=== PATIENT | female | born 1950 | race Caucasian/White ===

== ENCOUNTER 2016-12-03 17:58 | Emergency (ER) | payer MEDICARE, OTHER ==
[~2016-12-03] VITALS: Ht 162.6 cm; Wt 95.2 kg
[2016-12-03] MEDS ORDERED: OLOP5DRO7 OP (18:34)
[2016-12-03] MEDS ORDERED: FLUO20CA8 PO (18:34)
[2016-12-03] MEDS ORDERED: LEVO75TA PO (18:34)
[2016-12-03] MEDS ORDERED: CEFU250T66 PO (18:34)
[2016-12-03] MEDS ORDERED: ATEN50TA41 PO (18:34)
[2016-12-03 18:40] LABS: HEMOGLOBIN 14.1 g/dL (11.7-16.4)
[2016-12-03 18:48] LABS: BLOOD UREA NITROGEN 15 mg/dL (7-18)
[2016-12-03 18:54] LABS: RAPID INFLUENZA A Negative (Negative); RAPID INFLUENZA B Negative (Negative)
[2016-12-03 19:06] LABS: PATH.CAST-FLAG NOT PRESENT; SPERM-FLAG NOT PRESENT; SRC-FLAG NOT PRESENT; XTAL-FLAG NOT PRESENT; YLC-FLAG NOT PRESENT
[2016-12-03] MEDS ORDERED: OMNIPAQUE 350 MG/ML, 100ML BOTTLE ONE (19:52)
[2016-12-03 22:14] VITALS: BP 137/75
== END 2016-12-03 22:16 | disposition home or self-care (01) ==
LOC: ED 19:40
DX: R10.31 Right lower quadrant pain (principal); I10 Essential (primary) hypertension
CPT/HCPCS: 36415; 74177; 80048; 81001; 82040; 85025; 87400; 99285; Q9967

== ENCOUNTER 2018-11-09 10:00 | Inpatient (IN) | payer MEDICARE, OTHER ==
[~2018-11-09] VITALS: Ht 162.6 cm; Wt 94.1 kg
[~2018-11-09 10:00] MED LIST: ATEN50TA41 PO; CEFU250T66 PO; FLUO20CA8 PO; LEVO75TA PO; OLOP5DRO13 OP
[2018-11-09] MEDS ORDERED: METOPROLOL 1 MG/ML, 5ML IVPush STA (10:24)
[2018-11-09] MEDS ORDERED: BIVALIRUDIN 250 MG ONE ×2 (10:29→11:28)
[2018-11-09] MEDS ORDERED: MORPHINE SULFATE 4 MG/ML, 1ML ONE (10:29)
[2018-11-09] MEDS ORDERED: METOPROLOL 1 MG/ML, 5ML ONE (10:29)
[2018-11-09] MEDS ORDERED: FENTANYL PF 100 MCG/2ML ONE (10:29)
[2018-11-09] MEDS ORDERED: LIDOCAINE 2%, 20ML ONE (10:29)
[2018-11-09] MEDS ORDERED: NITROGLYCERIN 5 MG/ML, 10ML ONE (10:29)
[2018-11-09] MEDS ORDERED: TICAGRELOR 90 MG TABLET ONE (10:29)
[2018-11-09] MEDS ORDERED: MIDAZOLAM 1 MG/ML, 5ML ONE (10:29)
[2018-11-09] MEDS ORDERED: HEPARIN 1,000 UNITS/ML, 10ML ONE (10:29)
[2018-11-09] MEDS ORDERED: VERAPAMIL 2.5 MG/ML, 2ML ONE (10:29)
[2018-11-09] MEDS ORDERED: SODIUM CHLORIDE FLUSH 10ML SYR IVF ONE (10:30)
[2018-11-09] MEDS ORDERED: ONDANSETRON 2MG/ML, 2ML IVPush ONE (10:30)
[2018-11-09] MEDS ORDERED: ASPIRIN 81 MG TABLET CHEW PO ONE (10:30)
[2018-11-09] MEDS: MORPHINE SULFATE 4 MG/ML, 1ML IVPush PRN ×3 (10:30→16:43)
--- NOTE | 2018-11-09 10:34 | NUR ---
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
[2018-11-09] MEDS ORDERED: DIPHENHYDRAMINE 50 MG/ML, 1ML ONE (10:36)
[2018-11-09] MEDS ORDERED: methylPREDNISolone SOD SUCC 125 MG/2 ML ONE (10:36)
[2018-11-09] MEDS ORDERED: ASPIRIN 81 MG TABLET CHEW ONE ×2 (10:38→11:00)
[2018-11-09 10:41] LABS: BASOPHILS # (AUTO) 0.05 x10^3/uL (0-0.1); BASOPHILS % (AUTO) 1 % (0-1); EOSINOPHILS # (AUTO) 0.29 x10^3/uL (0-0.4); EOSINOPHILS % (AUTO) 4 % (1-7); LYMPHOCYTES # (AUTO) 3.45 x10^3/uL (1-3.4); LYMPHOCYTES % (AUTO) 44 % (22-44); MD NO; MEAN CORPUSCULAR HEMOGLOBIN 29.8 pg (27.0-34.8); MEAN CORPUSCULAR HGB CONC 33.8 g/dL (32.4-35.8); MEAN CORPUSCULAR VOLUME 88.2 fL (80-100); MEAN PLATELET VOLUME 7.9 fL (7.4-10.4); MONOCYTES # (AUTO) 0.56 x10^3/uL (0.2-0.8); MONOCYTES % (AUTO) 7 % (2-9); NEUTROPHILS # (AUTO) 3.49 x10^3/uL (1.8-6.8); NEUTROPHILS % (AUTO) 45 % (42-75); PLATELET COUNT 311 x10^3/uL (130-400); RED BLOOD COUNT 4.84 x10^6/uL (3.82-5.3)
[2018-11-09 10:52] LABS: ALBUMIN 4.1 g/dL (3.4-5.0); ANION GAP 6 mmol/L (5-15); CALCIUM 8.6 mg/dL (8.5-10.1); CHLORIDE 106 mmol/L (98-107)
[2018-11-09 10:58] LABS: ALANINE AMINOTRANSFERASE 25 U/L (12-78); ALKALINE PHOSPHATASE 80 U/L (45-117); BILIRUBIN,TOTAL 0.8 mg/dL (0.2-1.0); CREATININE 0.96 mg/dL (0.55-1.02); TOTAL PROTEIN 7.6 g/dL (6.4-8.2); TROPONIN I 0.035 ng/mL (0.000-0.045)
[2018-11-09] MEDS ORDERED: METOPROLOL 1 MG/ML, 5ML IVPush ONE (11:00)
[2018-11-09] MEDS ORDERED: PRASUGREL 10 MG TABLET ONE (11:28)
[2018-11-09] MEDS: SODIUM CHLORIDE 0.9% 1,000 ML IV SCH ×2 (11:37→19:37)
[2018-11-09] MEDS ORDERED: BIVALIRUDIN 250 MG in SODIUM CHLORIDE 0.9% 50 ML IV SCH (11:37)
[2018-11-09] MEDS ORDERED: NITROGLYCERIN 0.4 MG/SPRAY SL PRN (12:00)
[2018-11-09] MEDS ORDERED: NITROGLYCERIN 0.4 MG BOTTLE (25 TABS) SL PRN (12:00)
[2018-11-09] MEDS ORDERED: morphine SULFATE 10 MG/ML, 1ML IVPush PRN (12:00)
[2018-11-09] MEDS ORDERED: ZOLPIDEM 5MG TABLET PO PRN (12:00)
[2018-11-09] MEDS ORDERED: ONDANSETRON 2MG/ML, 2ML IVPush PRN (12:00)
[2018-11-09] MEDS: METOPROLOL TARTRATE 25 MG TABLET PO SCH (18:01)
[2018-11-09 20:39] LABS: MEAN CORPUSCULAR HEMOGLOBIN 29.6 pg (27.0-34.8); MEAN CORPUSCULAR HGB CONC 33.9 g/dL (32.4-35.8); MEAN CORPUSCULAR VOLUME 87.4 fL (80-100); MEAN PLATELET VOLUME 8.1 fL (7.4-10.4); PLATELET COUNT 286 x10^3/uL (130-400); RED BLOOD COUNT 4.88 x10^6/uL (3.82-5.3); RED CELL DISTRIBUTION WIDTH 13.7 % (9.6-15.2)
[2018-11-09 20:50] LABS: ALANINE AMINOTRANSFERASE 51 U/L (12-78); ALBUMIN 3.6 g/dL (3.4-5.0); ANION GAP 10 mmol/L (5-15); CALCIUM 8.4 mg/dL (8.5-10.1); CHLORIDE 108 mmol/L (98-107); CREATININE 1.07 mg/dL (0.55-1.02)
[2018-11-09 20:52] LABS: ALKALINE PHOSPHATASE 70 U/L (45-117); BILIRUBIN,TOTAL 0.5 mg/dL (0.2-1.0)
[2018-11-09] MEDS ORDERED: ATORVASTATIN 80 MG TABLET PO SCH (21:00)
[2018-11-09 21:04] LABS: BASOPHILS # (AUTO) 0.05 x10^3/uL (0-0.1); BASOPHILS % (AUTO) 1 % (0-1); EOSINOPHILS % (AUTO) 0 % (1-7); LYMPHOCYTES # (AUTO) 0.89 x10^3/uL (1-3.4); LYMPHOCYTES % (AUTO) 11 % (22-44); MD SCAN; MONOCYTES # (AUTO) 0.14 x10^3/uL (0.2-0.8); MONOCYTES % (AUTO) 2 % (2-9); NEUTROPHILS # (AUTO) 7.43 x10^3/uL (1.8-6.8); NEUTROPHILS % (AUTO) 87 % (42-75)
[2018-11-10] MEDS: SODIUM CHLORIDE 0.9% 1,000 ML IV SCH (03:37)
[2018-11-10 04:34] LABS: CALCIUM 9.1 mg/dL (8.5-10.1); CHLORIDE 107 mmol/L (98-107)
[2018-11-10 05:05] LABS: ANION GAP 10 mmol/L (5-15); CREATININE 0.84 mg/dL (0.55-1.02)
[2018-11-10] MEDS: METOPROLOL TARTRATE 25 MG TABLET PO SCH ×2 (06:34→18:31)
[2018-11-10] MEDS: LEVOTHYROXINE 75 MCG TABLET PO SCH (06:34)
[2018-11-10] MEDS: ASPIRIN 81 MG TABLET EC PO SCH (08:26)
[2018-11-10] MEDS: PRASUGREL 10 MG TABLET PO SCH (08:26)
[2018-11-10] MEDS: FLUOXETINE HCL 20 MG CAPSULE PO SCH (08:26)
[2018-11-10] MEDS: EZETIMIBE 10 MG TABLET PO SCH (08:27)
[2018-11-10] MEDS ORDERED: MAGNESIUM SULFATE PMX 2GM/50ML 50 ML IV ONE (12:00)
[2018-11-10 19:31] VITALS: BP 108/67
[2018-11-11 02:52] VITALS: BP 106/69
[2018-11-11] MEDS: LEVOTHYROXINE 75 MCG TABLET PO SCH (06:01)
[2018-11-11] MEDS: METOPROLOL TARTRATE 25 MG TABLET PO SCH (06:04)
[2018-11-11 06:20] LABS: BASOPHILS # (AUTO) 0.05 x10^3/uL (0-0.1); BASOPHILS % (AUTO) 1 % (0-1); EOSINOPHILS % (AUTO) 2 % (1-7); LYMPHOCYTES # (AUTO) 2.36 x10^3/uL (1-3.4); LYMPHOCYTES % (AUTO) 29 % (22-44); MD NO; MEAN CORPUSCULAR HEMOGLOBIN 30.1 pg (27.0-34.8); MEAN CORPUSCULAR HGB CONC 34.5 g/dL (32.4-35.8); MEAN CORPUSCULAR VOLUME 87.2 fL (80-100); MEAN PLATELET VOLUME 8.2 fL (7.4-10.4); MONOCYTES # (AUTO) 0.74 x10^3/uL (0.2-0.8); MONOCYTES % (AUTO) 9 % (2-9); NEUTROPHILS # (AUTO) 4.87 x10^3/uL (1.8-6.8); NEUTROPHILS % (AUTO) 59 % (42-75); PLATELET COUNT 230 x10^3/uL (130-400); RED BLOOD COUNT 4.12 x10^6/uL (3.82-5.3); RED CELL DISTRIBUTION WIDTH 14.3 % (9.6-15.2)
[2018-11-11 06:24] LABS: ANION GAP 7 mmol/L (5-15); CALCIUM 8.3 mg/dL (8.5-10.1); CHLORIDE 109 mmol/L (98-107)
[2018-11-11 06:37] LABS: CHOL/HDL RATIO 4.3; CHOLESTEROL, TOTAL 189 mg/dL (140-239); CREATININE 0.71 mg/dL (0.55-1.02); HDL CHOL % 23 % (28-40); HDL CHOLESTEROL (DIRECT) 44 mg/dL (40-60); LDL CHOLESTEROL,CALCULATED 109 mg/dL (54-169); LDL/HDL RATIO 2.5 (0.5-3.0); TRIGLYCERIDES 181 mg/dL (50-200); VLDL CHOLESTEROL 36 mg/dL (0-25)
[2018-11-11 07:36] VITALS: BP 112/75
[2018-11-11] MEDS: PRASUGREL 10 MG TABLET PO SCH (09:07)
[2018-11-11] MEDS: EZETIMIBE 10 MG TABLET PO SCH (09:07)
[2018-11-11] MEDS: ASPIRIN 81 MG TABLET EC PO SCH (09:07)
[2018-11-11] MEDS: FLUOXETINE HCL 20 MG CAPSULE PO SCH (09:07)
[2018-11-11] MEDS ORDERED: PRAS10TA4 PO (09:58)
[2018-11-11] MEDS ORDERED: METO25TA35 PO (09:58)
[2018-11-11] MEDS ORDERED: NITR0.4T SL (09:58)
[2018-11-11] MEDS ORDERED: ASPI81TA45 PO (09:58)
== END 2018-11-11 11:29 | disposition home or self-care (01) | DRG 246 ==
LOC: ED 10:30 → EDIP 10:31 → ED 10:46 → CCU 11:52 → CSU 19:30 → 5SO 11-10 19:22 → DCLOUNGE 11-11 11:07
PROVIDERS: ADMIT Hospitalist; ATTEND Internal Medicine
PROC: 027034Z Dilation of Coronary Artery, One Artery with Drug-eluting Intraluminal Device, Percutaneous Approach (ICD-10-PCS; principal; 2018-11-09)
PROC: 4A023N7 Measurement of Cardiac Sampling and Pressure, Left Heart, Percutaneous Approach (ICD-10-PCS; 2018-11-09)
PROC: 4A033BC Measurement of Arterial Pressure, Coronary, Percutaneous Approach (ICD-10-PCS; 2018-11-09)
PROC: B2111ZZ Fluoroscopy of Multiple Coronary Arteries using Low Osmolar Contrast (ICD-10-PCS; 2018-11-09)
PROC: B2151ZZ Fluoroscopy of Left Heart using Low Osmolar Contrast (ICD-10-PCS; 2018-11-09)
DX: I21.29 ST elevation (STEMI) myocardial infarction involving other sites (principal); I50.33 Acute on chronic diastolic (congestive) heart failure; I25.10 Atherosclerotic heart disease of native coronary artery without angina pectoris; E03.9 Hypothyroidism, unspecified; E78.5 Hyperlipidemia, unspecified; F32.9 Major depressive disorder, single episode, unspecified; I10 Essential (primary) hypertension; J45.20 Mild intermittent asthma, uncomplicated; Z88.0 Allergy status to penicillin; Z98.51 Tubal ligation status; Z91.013 Allergy to seafood; Z91.010 Allergy to peanuts; Z87.891 Personal history of nicotine dependence; Z82.49 Family history of ischemic heart disease and other diseases of the circulatory system; Z82.5 Family history of asthma and other chronic lower respiratory diseases; I11.0 Hypertensive heart disease with heart failure
CPT/HCPCS: 36415; 71045; 80048; 80053; 80061; 83735; 83880; 84100; 84443; 84484; 85014; 85018; 85025; 87081; 93005; 93306; 93458; 93571; 96374; 99156; 99157; 99285; C1760; C1769; C1894; G0378; J0583; J1644; J2250; J3010; C1725; C1874; C1887; J1200; J2930; J3475; Q9967

== ENCOUNTER → 2019-02-09 | Outpatient (CLI) | payer MEDICARE, OTHER ==
[~2019-02-09] MED LIST changes: +ASPI81TA45 PO; +METO25TA35 PO; +NITR0.4T41 SL; +PRAS10TA4 PO
== END | disposition home or self-care (01) ==
LOC: CFH 08:01
PROVIDERS: ATTEND Registered Nurse
DX: I08.3 Combined rheumatic disorders of mitral, aortic and tricuspid valves (principal); I25.118 Atherosclerotic heart disease of native coronary artery with other forms of angina pectoris
CPT/HCPCS: 93306

== ENCOUNTER 2019-02-23 06:02 | Day surgery (SDC) | payer MEDICARE, OTHER ==
[~2019-02-23] VITALS: Ht 162.6 cm; Wt 88.5 kg
[2019-02-23 06:27] VITALS: BP 142/86
[2019-02-23] MEDS ORDERED: SODIUM CHLORIDE 0.9% 1,000 ML IV SCH ×2 (06:30)
[2019-02-23] MEDS ORDERED: EZET10TA18 PO (06:39)
[2019-02-23] MEDS ORDERED: PROPOFOL 10 MG/ML, 20ML ONE (15:41)
== END 2019-02-23 09:34 | disposition home or self-care (01) ==
LOC: CACL 06:02
PROVIDERS: ATTEND Internal Medicine Cardiovascular Disease
DX: I34.0 Nonrheumatic mitral (valve) insufficiency (principal); J44.9 Chronic obstructive pulmonary disease, unspecified; F17.210 Nicotine dependence, cigarettes, uncomplicated; I10 Essential (primary) hypertension; E78.2 Mixed hyperlipidemia; I25.2 Old myocardial infarction; E03.9 Hypothyroidism, unspecified; Z79.82 Long term (current) use of aspirin; Z91.018 Allergy to other foods; Z88.0 Allergy status to penicillin; Z91.013 Allergy to seafood; Z98.61 Coronary angioplasty status
CPT/HCPCS: 93312; 93321; 93325; J2704

== ENCOUNTER 2019-11-01 10:16 | Observation (INO) | payer MEDICARE, OTHER ==
[~2019-11-01] VITALS: Ht 162.6 cm; Wt 98.8 kg
[~2019-11-01 10:16] MED LIST changes: +EZET10TA70 PO; +FLUO20CA23 PO; -FLUO20CA8 PO
[2019-11-01] MEDS ORDERED: ALIR75PE INJ (10:33)
[2019-11-01] MEDS ORDERED: ALBU18HF PO (10:33)
[2019-11-01] MEDS ORDERED: LOSA100T14 PO (10:33)
--- NOTE | 2019-11-01 11:08 | NUR ---
pt continues to rest in bed with hospital gown on. pt on cardiac and vitals monitors. pt at bedside. call light within reach. will continue to monitor.
[2019-11-01] MEDS ORDERED: ASPIRIN 81 MG TABLET CHEW PO ONE (11:30)
[2019-11-01 11:33] LABS: BASOPHILS # (AUTO) 0.03 x10^3/uL (0-0.1); BASOPHILS % (AUTO) 1 % (0-1); EOSINOPHILS # (AUTO) 0.28 x10^3/uL (0-0.4); EOSINOPHILS % (AUTO) 5 % (1-7); LYMPHOCYTES # (AUTO) 1.84 x10^3/uL (1-3.4); LYMPHOCYTES % (AUTO) 32 % (22-44); MD NO; MEAN CORPUSCULAR HEMOGLOBIN 30.4 pg (27.0-34.8); MEAN CORPUSCULAR HGB CONC 33.8 g/dL (32.4-35.8); MEAN CORPUSCULAR VOLUME 90.1 fL (80-100); MEAN PLATELET VOLUME 8.2 fL (7.4-10.4); MONOCYTES # (AUTO) 0.49 x10^3/uL (0.2-0.8); MONOCYTES % (AUTO) 9 % (2-9); NEUTROPHILS # (AUTO) 3.05 x10^3/uL (1.8-6.8); NEUTROPHILS % (AUTO) 54 % (42-75); PLATELET COUNT 269 x10^3/uL (130-400); RED BLOOD COUNT 4.36 x10^6/uL (3.82-5.3); RED CELL DISTRIBUTION WIDTH 13.5 % (9.6-15.2)
[2019-11-01 11:50] LABS: ALBUMIN 3.4 g/dL (3.4-5.0); ANION GAP 6 mmol/L (5-15); CALCIUM 9.2 mg/dL (8.5-10.1); CHLORIDE 107 mmol/L (98-107); CREATININE 1.01 mg/dL (0.55-1.02)
[2019-11-01 11:53] LABS: TROPONIN I < 0.015 ng/mL (0.000-0.045)
--- NOTE | 2019-11-01 12:19 | NUR ---
PT RESTING CALMLY IN BED ON PHONE. NO STATED NEEDS CURRENTLY. WILL CONTINUE TO MONITOR. PT IS UP FOR POSS ADMISSION.
--- NOTE | 2019-11-01 13:33 | NUR ---
PT ABLE TO AMBULATE STEADILY ON OWN TO BATHROOM. PT REMAINS POSS ADMIT. NO STATED NEEDS FROM PT AT THIS TIME.
[2019-11-01] MEDS ORDERED: SODIUM CHLORIDE 0.9% 1,000 ML IV SCH (14:35)
[2019-11-01] MEDS ORDERED: morphine SULFATE 10 MG/ML, 1ML IVPush PRN (15:00)
[2019-11-01] MEDS ORDERED: PROMETHAZINE 25 MG/ML, 1ML IM PRN (15:00)
[2019-11-01] MEDS ORDERED: ONDANSETRON 2MG/ML, 2ML IVPush PRN (15:00)
[2019-11-01] MEDS ORDERED: NITROGLYCERIN SINGLE TAB 0.4 MG SL PRN (15:00)
[2019-11-01] MEDS ORDERED: LABETALOL 5MG/ML, 20ML IVPush PRN (15:00)
[2019-11-01] MEDS: HEPARIN 5,000 UNITS/ML, 1ML SQ SCH ×2 (15:00→23:00)
[2019-11-01] MEDS ORDERED: hydrALAzine 20 MG/ML, 1ML IVPush PRN (15:00)
--- NOTE | 2019-11-01 15:00 | NUR ---
BREAK RN NOTE: PT NOTES 3/10 PAIN TO LEFT JAW AND SHOULDER, STATES IT HAS IMPROVED SINCE ARRIVAL. REPORT RECEIVED FROM PRIMARY RN CARL. CARD TELE ROOM ASSIGNED, REPORT GIVEN TO RECEIVING IFTIKHAR PROCTOR. PT A&O, RESPS EVEN AND UNLABORED, NSR ON COMPLIANCE ADMINISTRATOR WITH NO ECTOPY NOTED. AWAITING TRANSPORT TO [facility] AT THIS TIME.
--- NOTE | 2019-11-01 15:03 | NUR ---
PT NOTES SHE TOOK 324 MG ASPIRIN THIS AM PRIOR TO ARRIVAL IN ED.
[2019-11-01 15:21] LABS: CHOLESTEROL, TOTAL 138 mg/dL (140-239)
[2019-11-01 15:26] LABS: CHOL/HDL RATIO 2.2; HDL CHOL % 45 % (28-40); HDL CHOLESTEROL (DIRECT) 62 mg/dL (40-60); LDL CHOLESTEROL,CALCULATED 56 mg/dL (54-169); LDL/HDL RATIO 0.9 (0.5-3.0); TRIGLYCERIDES 99 mg/dL (50-200); TROPONIN I < 0.015 ng/mL (0.000-0.045); VLDL CHOLESTEROL 20 mg/dL (0-25)
[2019-11-01 16:38] VITALS: BP 138/81
[2019-11-01] MEDS: METOPROLOL TARTRATE 25 MG TAB PO SCH (18:11)
[2019-11-01 20:24] VITALS: BP 135/78
[2019-11-01 20:59] LABS: TROPONIN I < 0.015 ng/mL (0.000-0.045)
[2019-11-01] MEDS ORDERED: EZETIMIBE 10 MG TABLET PO SCH (21:00)
[2019-11-01] MEDS: ACETAMINOPHEN 325 MG TABLET PO PRN (21:10)
[2019-11-01] MEDS ORDERED: OMNIPAQUE 350 MG/ML, 100ML BOTTLE ONE (23:01)
[2019-11-02 00:49] VITALS: BP 137/83
[2019-11-02] MEDS: ACETAMINOPHEN 325 MG TABLET PO PRN (02:07)
[2019-11-02 05:20] LABS: BASOPHILS # (AUTO) 0.03 x10^3/uL (0-0.1); BASOPHILS % (AUTO) 1 % (0-1); EOSINOPHILS # (AUTO) 0.33 x10^3/uL (0-0.4); EOSINOPHILS % (AUTO) 7 % (1-7); LYMPHOCYTES # (AUTO) 1.88 x10^3/uL (1-3.4); LYMPHOCYTES % (AUTO) 37 % (22-44); MD NO; MEAN CORPUSCULAR HEMOGLOBIN 30.2 pg (27.0-34.8); MEAN CORPUSCULAR HGB CONC 33.2 g/dL (32.4-35.8); MEAN CORPUSCULAR VOLUME 90.8 fL (80-100); MEAN PLATELET VOLUME 7.9 fL (7.4-10.4); MONOCYTES % (AUTO) 10 % (2-9); NEUTROPHILS # (AUTO) 2.35 x10^3/uL (1.8-6.8); NEUTROPHILS % (AUTO) 46 % (42-75); PLATELET COUNT 245 x10^3/uL (130-400); RED BLOOD COUNT 4.27 x10^6/uL (3.82-5.3); RED CELL DISTRIBUTION WIDTH 13.9 % (9.6-15.2)
[2019-11-02 05:24] LABS: CHLORIDE 108 mmol/L (98-107)
[2019-11-02 05:32] LABS: ALANINE AMINOTRANSFERASE 21 U/L (12-78); ALBUMIN 3.3 g/dL (3.4-5.0); ALKALINE PHOSPHATASE 67 U/L (45-117); ANION GAP 5 mmol/L (5-15); BILIRUBIN,TOTAL 0.6 mg/dL (0.2-1.0); CALCIUM 8.5 mg/dL (8.5-10.1); TOTAL PROTEIN 6.7 g/dL (6.4-8.2)
[2019-11-02] MEDS ORDERED: LEVOTHYROXINE 75 MCG TABLET PO SCH (06:00)
[2019-11-02] MEDS: METOPROLOL TARTRATE 25 MG TAB PO SCH (06:00)
[2019-11-02] MEDS: HEPARIN 5,000 UNITS/ML, 1ML SQ SCH ×2 (07:00→14:13)
[2019-11-02 07:45] VITALS: BP 154/82
[2019-11-02] MEDS ORDERED: ASPIRIN 81 MG TABLET CHEW PO SCH (09:00)
[2019-11-02] MEDS ORDERED: EZETIMIBE 10 MG TABLET PO SCH (09:00)
[2019-11-02] MEDS ORDERED: FLUOXETINE HCL 20 MG CAPSULE PO SCH (09:00)
[2019-11-02] MEDS ORDERED: PRASUGREL 10 MG TABLET PO SCH (09:00)
[2019-11-02] MEDS ORDERED: LOSARTAN 100 MG TAB PO SCH (09:00)
[2019-11-02 12:59] VITALS: BP 133/83
[2019-11-02] MEDS ORDERED: FAMO-79 PO (14:22)
== END 2019-11-02 16:49 | disposition home or self-care (01) ==
LOC: ED 12:18 → EDIP 14:09 → INTOOBSV 14:09 → UNDOADMIN 14:09 → 5SO 15:13
PROVIDERS: ADMIT Internal Medicine; ATTEND Hospitalist
DX: R07.89 Other chest pain (principal); I25.10 Atherosclerotic heart disease of native coronary artery without angina pectoris; E03.9 Hypothyroidism, unspecified; E78.5 Hyperlipidemia, unspecified; I10 Essential (primary) hypertension; I25.2 Old myocardial infarction; Z79.82 Long term (current) use of aspirin; Z79.899 Other long term (current) drug therapy; Z95.5 Presence of coronary angioplasty implant and graft
CPT/HCPCS: 36415; 71045; 71275; 78452; 80048; 80053; 80061; 82040; 84443; 84484; 85025; 85379; 93005; 93017; 93306; 99285; A9502; G0378; J7030; Q9967

== ENCOUNTER 2020-02-12 16:56 | Observation (INO) | payer MEDICARE, OTHER ==
[~2020-02-12] VITALS: Ht 162.6 cm; Wt 90.9 kg
[~2020-02-12 16:56] MED LIST changes: +ALBU18HF PO; +ALIR75PE INJ; +FAMO-79 PO; +LOSA100T14 PO
[2020-02-12] MEDS ORDERED: IBUPROFEN 200 MG TABLET PO ONE (17:30)
[2020-02-12] MEDS ORDERED: SODIUM CHLORIDE FLUSH 10ML SYR IVF ONE (17:30)
[2020-02-12 17:59] LABS: MICROSCOPIC NOT IND
[2020-02-12 18:00] LABS: BASOPHILS # (AUTO) 0.01 x10^3/uL (0-0.1); BASOPHILS % (AUTO) 0 % (0-1); EOSINOPHILS # (AUTO) 0.08 x10^3/uL (0-0.4); EOSINOPHILS % (AUTO) 2 % (1-7); LYMPHOCYTES # (AUTO) 0.38 x10^3/uL (1-3.4); LYMPHOCYTES % (AUTO) 8 % (22-44); MD NO; MEAN CORPUSCULAR HEMOGLOBIN 30.1 pg (27.0-34.8); MEAN CORPUSCULAR HGB CONC 33.4 g/dL (32.4-35.8); MEAN CORPUSCULAR VOLUME 90.1 fL (80-100); MEAN PLATELET VOLUME 7.6 fL (7.4-10.4); MONOCYTES # (AUTO) 0.39 x10^3/uL (0.2-0.8); MONOCYTES % (AUTO) 8 % (2-9); NEUTROPHILS # (AUTO) 4.17 x10^3/uL (1.8-6.8); NEUTROPHILS % (AUTO) 83 % (42-75); PLATELET COUNT 220 x10^3/uL (130-400); RED BLOOD COUNT 4.24 x10^6/uL (3.82-5.3); RED CELL DISTRIBUTION WIDTH 13.6 % (9.6-15.2)
[2020-02-12] MEDS ORDERED: CEFTRIAXONE PMX 2GM/50ML 50 ML IV SCH (18:00)
[2020-02-12] MEDS ORDERED: IBUPROFEN 600 MG TABLET ONE (18:05)
[2020-02-12] MEDS ORDERED: CEFTRIAXONE PMX 2GM/50ML 50 ML ONE (18:05)
[2020-02-12 18:12] LABS: ALANINE AMINOTRANSFERASE 34 U/L (12-78); ALBUMIN 3.8 g/dL (3.4-5.0); ANION GAP 5 mmol/L (5-15); CALCIUM 8.8 mg/dL (8.5-10.1); CHLORIDE 108 mmol/L (98-107); CREATININE 1.11 mg/dL (0.55-1.02)
[2020-02-12 18:13] LABS: ALKALINE PHOSPHATASE 93 U/L (45-117); BILIRUBIN,TOTAL 0.4 mg/dL (0.2-1.0); TOTAL PROTEIN 7.4 g/dL (6.4-8.2)
[2020-02-12 19:30] VITALS: BP 114/71
[2020-02-12] MEDS ORDERED: NITROGLYCERIN SINGLE TAB 0.4 MG SL PRN (20:30)
[2020-02-12] MEDS ORDERED: MELATONIN 5 MG TABLET PO PRN (21:00)
[2020-02-12] MEDS ORDERED: CYCLOBENZAPRINE 10 MG TABLET PO PRN (21:00)
[2020-02-12] MEDS ORDERED: morphine SULFATE 10 MG/ML, 1ML IVPush PRN (21:00)
[2020-02-12] MEDS ORDERED: BISACODYL 10 MG SUPP PR PRN (21:00)
[2020-02-12] MEDS ORDERED: POLYETHYLENE GLYCOL 17 GM PACKET PO PRN (21:00)
[2020-02-12] MEDS ORDERED: HYDROcodone/APAP 5/325 TABLET PO PRN (21:00)
[2020-02-12] MEDS ORDERED: hydrALAzine 20 MG/ML, 1ML IVPush PRN (21:00)
[2020-02-12] MEDS ORDERED: ONDANSETRON 2MG/ML, 2ML IVPush PRN (21:00)
[2020-02-12] MEDS ORDERED: KETOROLAC 30 MG/1 ML IM PRN (21:00)
[2020-02-12] MEDS ORDERED: LACTATED RINGERS 500 ML IVBOLUS ONE (21:30)
[2020-02-12] MEDS: ENOXAPARIN 40 MG/0.4 ML SQ SCH (21:42)
[2020-02-13 00:30] VITALS: BP 137/78
[2020-02-13 05:34] LABS: BASOPHILS # (AUTO) 0.01 x10^3/uL (0-0.1); BASOPHILS % (AUTO) 0 % (0-1); EOSINOPHILS # (AUTO) 0.16 x10^3/uL (0-0.4); EOSINOPHILS % (AUTO) 5 % (1-7); LYMPHOCYTES # (AUTO) 0.73 x10^3/uL (1-3.4); LYMPHOCYTES % (AUTO) 23 % (22-44); MD NO; MEAN CORPUSCULAR HEMOGLOBIN 30.1 pg (27.0-34.8); MEAN CORPUSCULAR HGB CONC 33.3 g/dL (32.4-35.8); MEAN CORPUSCULAR VOLUME 90.4 fL (80-100); MEAN PLATELET VOLUME 7.8 fL (7.4-10.4); MONOCYTES # (AUTO) 0.37 x10^3/uL (0.2-0.8); MONOCYTES % (AUTO) 12 % (2-9); NEUTROPHILS % (AUTO) 60 % (42-75); PLATELET COUNT 215 x10^3/uL (130-400); RED BLOOD COUNT 4.27 x10^6/uL (3.82-5.3); RED CELL DISTRIBUTION WIDTH 13.3 % (9.6-15.2)
[2020-02-13] MEDS: METOPROLOL TARTRATE 25 MG TAB PO SCH ×2 (05:41→18:33)
[2020-02-13 05:42] LABS: ANION GAP 4 mmol/L (5-15); CHLORIDE 109 mmol/L (98-107)
[2020-02-13] MEDS: LEVOTHYROXINE 75 MCG TABLET PO SCH (05:42)
[2020-02-13] MEDS: ACETAMINOPHEN 325 MG TABLET PO PRN ×2 (08:26→20:18)
[2020-02-13] MEDS: PRASUGREL 10 MG TABLET PO SCH (08:26)
[2020-02-13] MEDS: ASPIRIN 81 MG TABLET EC PO SCH (08:27)
[2020-02-13] MEDS: FLUOXETINE HCL 20 MG CAPSULE PO SCH (08:27)
[2020-02-13] MEDS: SENNA/DOCUSATE TABLET PO SCH (08:28)
[2020-02-13] MEDS: EZETIMIBE 10 MG TABLET PO SCH (08:28)
[2020-02-13] MEDS: LOSARTAN 100 MG TAB PO SCH (08:38)
[2020-02-13 09:23] VITALS: BP 134/76
[2020-02-13 15:03] VITALS: BP 132/79
[2020-02-13] MEDS ORDERED: CEFTRIAXONE PMX 1GM/50ML 50 ML IV SCH (18:00)
[2020-02-13] MEDS ORDERED: METO25TA91 PO (18:37)
[2020-02-13 19:00] VITALS: BP 145/83
[2020-02-13] MEDS: ENOXAPARIN 40 MG/0.4 ML SQ SCH (20:18)
[2020-02-13] MEDS ORDERED: METOPROLOL SUCCINATE 25 MG TAB.ER.24H PO SCH (21:00)
[2020-02-14 00:44] VITALS: BP 113/71
[2020-02-14] MEDS: METOPROLOL TARTRATE 25 MG TAB PO SCH (02:44)
[2020-02-14 05:00] LABS: HCT (SEDRATE) 38.7 % (34.6-47.8)
[2020-02-14 05:02] LABS: BASOPHILS # (AUTO) 0.02 x10^3/uL (0-0.1); BASOPHILS % (AUTO) 1 % (0-1); EOSINOPHILS # (AUTO) 0.32 x10^3/uL (0-0.4); EOSINOPHILS % (AUTO) 8 % (1-7); LYMPHOCYTES # (AUTO) 1.22 x10^3/uL (1-3.4); LYMPHOCYTES % (AUTO) 32 % (22-44); MD NO; MEAN CORPUSCULAR HEMOGLOBIN 30.1 pg (27.0-34.8); MEAN CORPUSCULAR HGB CONC 33.2 g/dL (32.4-35.8); MEAN CORPUSCULAR VOLUME 90.6 fL (80-100); MEAN PLATELET VOLUME 7.7 fL (7.4-10.4); MONOCYTES # (AUTO) 0.42 x10^3/uL (0.2-0.8); MONOCYTES % (AUTO) 11 % (2-9); NEUTROPHILS % (AUTO) 49 % (42-75); PLATELET COUNT 236 x10^3/uL (130-400); RED BLOOD COUNT 4.26 x10^6/uL (3.82-5.3); RED CELL DISTRIBUTION WIDTH 13.6 % (9.6-15.2)
[2020-02-14 05:13] LABS: ANION GAP 2 mmol/L (5-15); CALCIUM 8.5 mg/dL (8.5-10.1); CHLORIDE 109 mmol/L (98-107); CREATININE 0.85 mg/dL (0.55-1.02)
[2020-02-14] MEDS: LEVOTHYROXINE 75 MCG TABLET PO SCH (05:44)
[2020-02-14 06:27] VITALS: BP 130/79
[2020-02-14] MEDS: ASPIRIN 81 MG TABLET EC PO SCH (09:01)
[2020-02-14] MEDS: PRASUGREL 10 MG TABLET PO SCH (09:01)
[2020-02-14] MEDS: FLUOXETINE HCL 20 MG CAPSULE PO SCH (09:01)
[2020-02-14] MEDS: EZETIMIBE 10 MG TABLET PO SCH (09:01)
[2020-02-14] MEDS: SENNA/DOCUSATE TABLET PO SCH (09:05)
[2020-02-14] MEDS: LOSARTAN 100 MG TAB PO SCH (10:58)
[2020-02-14] MEDS ORDERED: CEFD300C37 PO (11:17)
== END 2020-02-14 14:00 | disposition home or self-care (01) ==
LOC: ED 18:26 → INTOOBSV 19:18 → 3N 19:18 → DCLOUNGE 02-14 13:55
PROVIDERS: ADMIT Internal Medicine; ATTEND Hospitalist
DX: R50.9 Fever, unspecified (principal); R74.0 Nonspecific elevation of levels of transaminase and lactic acid dehydrogenase [LDH]; I25.10 Atherosclerotic heart disease of native coronary artery without angina pectoris; E78.5 Hyperlipidemia, unspecified; N10 Acute pyelonephritis; I10 Essential (primary) hypertension; I25.2 Old myocardial infarction; E03.9 Hypothyroidism, unspecified; Z88.0 Allergy status to penicillin; Z79.899 Other long term (current) drug therapy; Z87.440 Personal history of urinary (tract) infections
CPT/HCPCS: 36415; 71046; 74177; 80048; 80053; 81003; 83605; 84145; 85025; 85651; 86140; 87040; 87086; 96365; 96366; 96372; 99285; G0378; J0696; J1650; J7120

== ENCOUNTER 2020-10-06 14:21 | Emergency (ER) | payer MEDICARE, OTHER ==
[~2020-10-06] VITALS: Ht 162.6 cm; Wt 93.3 kg
[~2020-10-06 14:21] MED LIST changes: +CEFD300C37 PO; +METO25TA91 PO
--- NOTE | 2020-10-06 14:37 | NUR ---
CROP OR GRAIN FARMWORKER: EKG DONE IN TRIAGE. CINDA VICTORIA IN TRIAGE FOR ASSESSMENT.
--- NOTE | 2020-10-06 14:59 | NUR ---
PT BIB VIA POV. PT STATES THAT SHE HAS BEEN HAVING LEFT SIDED ARM NUMBNESS AND CP, SOB, JAW PAIN THAT STARTED YESTERDAY BUT HAS BEEN GETTING WORSE TODAY. PT ALSO REPORTS DIZZINESS. PT REPORTS TAKING 1 SL NITROGLYCERINE AT APPROXIMATELY 1345 WITH RELIEF OF CP. PT STATES CP AND JAW PAIN IS CURRENTLY 4/10. PT HAS HX OF MT WITH STENT AND STATES THIS FEELS THE SAME. PT RESTING IN [facility], MONITORING IN PLACE, EKG DONE, PIV INSERTED, XR AT BEDSIDE, NADN AT THIS TIME, WCTM.
[2020-10-06 15:16] LABS: BASOPHILS % (AUTO) 1 % (0-1); EOSINOPHILS % (AUTO) 5 % (1-7); LYMPHOCYTES % (AUTO) 34 % (22-44); MEAN CORPUSCULAR HGB CONC 33.6 g/dL (32.4-35.8); MEAN PLATELET VOLUME 7.4 fL (7.4-10.4); MONOCYTES % (AUTO) 7 % (2-9); NEUTROPHILS % (AUTO) 54 % (42-75); PLATELET COUNT 310 x10^3/uL (130-400); RED BLOOD COUNT 4.34 x10^6/uL (3.82-5.3); RED CELL DISTRIBUTION WIDTH 13.6 % (9.6-15.2)
[2020-10-06 15:18] LABS: MD NO
[2020-10-06 15:21] LABS: ALBUMIN 4.1 g/dL (3.4-5.0); ANION GAP 7 mmol/L (5-15); CALCIUM 9.2 mg/dL (8.5-10.1); CHLORIDE 105 mmol/L (98-107)
[2020-10-06 15:26] LABS: ALANINE AMINOTRANSFERASE 26 U/L (12-78); ALKALINE PHOSPHATASE 91 U/L (45-117); BILIRUBIN,TOTAL 0.4 mg/dL (0.2-1.0); CREATININE 0.99 mg/dL (0.55-1.02); TOTAL PROTEIN 7.6 g/dL (6.4-8.2); TROPONIN I < 0.015 ng/mL (0.000-0.045)
[2020-10-06] MEDS ORDERED: SODIUM CHLORIDE FLUSH 10ML SYR IVF ONE (15:30)
[2020-10-06 16:13] VITALS: BP 132/54
== END 2020-10-06 16:34 | disposition home or self-care (01) ==
LOC: ED 16:00
DX: R07.2 Precordial pain (principal); R07.89 Other chest pain; R68.84 Jaw pain; R20.0 Anesthesia of skin; R42 Dizziness and giddiness; I25.2 Old myocardial infarction; I10 Essential (primary) hypertension; I25.10 Atherosclerotic heart disease of native coronary artery without angina pectoris; Z88.0 Allergy status to penicillin; Z98.51 Tubal ligation status; Z90.89 Acquired absence of other organs; Z79.899 Other long term (current) drug therapy
CPT/HCPCS: 36415; 71045; 80053; 83690; 83880; 84484; 85025; 93005; 99285

== ENCOUNTER 2021-04-27 12:42 | Outpatient (CLI) | payer MEDICARE, OTHER ==
[~2021-04-27 12:42] MED LIST changes: -ALIR75PE INJ; +ALIR75PE5 INJ
== END 2021-04-27 23:59 | disposition home or self-care (01) ==
LOC: CFH 12:42
PROVIDERS: ATTEND Internal Medicine Cardiovascular Disease
DX: I08.0 Rheumatic disorders of both mitral and aortic valves (principal); I10 Essential (primary) hypertension; E78.5 Hyperlipidemia, unspecified
CPT/HCPCS: 93306; 93356